=== PATIENT | female | born 1970 ===

== ENCOUNTER 2018-03-26 21:24 | Emergency (ER) | payer SELFPAY ==
[2018-03-26 21:44] VITALS: BP 97/61; PULSE 82; TEMP 98.2; O2SAT 99
--- NOTE | 2018-03-26 22:41 | C.PDOC ---
History Of Present Illness 47 year old female presents to the ER with a complaint of an itchy rash worsening over the past 2 days. The rash started on her foreearms and spread to her face today. Patient believes symptoms began after drinking a kale smoothie 2 days ago. She tried taking benadryl yesterday with no relief. Denies difficulty breathing, difficulty swallowing, fever, lip or tongue swelling, or chest pain. Time Seen by Provider: 03/26/18 21:48 Chief Complaint (Nursing): Abnormal Skin Integrity History Per: Patient History/Exam Limitations: no limitations Onset/Duration Of Symptoms: Days Current Symptoms Are (Timing): Still Present Location Of Injury: Right: Face, Forearm, Hand, Left: Forearm, Hand Quality Of Symptoms: Itching Recent travel outside of the [place]: No Past Medical History Reviewed: Historical Data, Nursing Documentation, Vital Signs Vital Signs: Last Vital Signs Temp 98.2 F 03/26/18 21:42 Pulse 82 03/26/18 21:42 Resp 20 03/26/18 23:31 BP 97/61 L 03/26/18 21:42 Pulse Ox 99 03/26/18 23:14 Family History: States: Unknown Family Hx - Social History Hx Alcohol Use: No Hx Substance Use: No - Immunization History Hx Tetanus Toxoid Vaccination: No Hx Influenza Vaccination: No Hx Pneumococcal Vaccination: No Review Of Systems Constitutional: Negative for: Fever, Chills ENT: Negative for: Mouth Swelling, Throat Swelling Respiratory: Negative for: Shortness of Breath, Wheezing Skin: Positive for: Rash Physical Exam - Physical Exam Appears: Well, Non-toxic, No Acute Distress Skin: Warm, Dry, Other (Papules and vesicles on an erythematous base to bilateral hands, forearms, and right face) Head: Atraumatic, Normacephalic Eye(s): bilateral: Normal Inspection, EOMI Nose: Normal Oral Mucosa: Moist Tongue: Normal Appearing, No Swelling Lips: Normal Appearing, No Swelling Throat: Normal, No Drooling, No Other (Swelling) Neck: Normal, Supple Chest: Symmetrical Cardiovascular: Rhythm Regular Respiratory: Normal Breath Sounds, No Accessory Muscle Use, No Stridor, No Wheezing Extremity: Normal ROM Neurological/Psych: Oriented x3, Normal Speech Gait: Steady ED Course And Treatment O2 Sat by Pulse Oximetry: 99 (Room air) Pulse Ox Interpretation: Normal Progress Note: Benadryl and prednisone administered. On re-evaluation, patient is resting comfortably, tolerating PO, has no shortness of breath, has no intra- oral swelling, no stridor. Patient notes that pruritus has improved. Discussed contact dermatitis vs urticaria. Patient was advised to avoid potential allergens, and to follow up with physician in 1-2 days. Disposition - Disposition Referrals: [facility] at [facility] [Outside] Disposition: HOME/ ROUTINE Disposition Time: 23:13 Condition: STABLE Additional Instructions: Follow up with the clinic in 2-5 days for further evaluation. Take medications as prescribed. Return to the emergency department at any time if symptoms persist or worsen. You may call [facility] for any assistance . 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 - Scribe Statement The provider has reviewed the documentation as recorded by the Scribe Jeremy Noyola All medical record entries made by the Miguel Angelibtrip were at my direction and personally dictated by me. I have reviewed the chart and agree that the record accurately reflects my personal performance of the history, physical exam, medical decision making, and the department course for this patient. I have also personally directed, reviewed, and agree with the discharge instructions and disposition.
[2018-03-26 23:31] VITALS: RESP 20
== END 2018-03-26 23:31 | disposition home or self-care (01) ==
LOC: C.ER 21:24
DX: R21 Rash and other nonspecific skin eruption (principal)